=== PATIENT | male | born 1940 | race African-American/Black ===

== ENCOUNTER → 2018-03-18 | Day surgery (SDC) | payer MEDICARE, OTHER ==
[~2018-03-18] VITALS: Ht 180.3 cm; Wt 84.0 kg
[~2018-03-18] MED LIST: ACETAMINOPHEN/HYDROcodone 325 MG/5 MG TAB ONE; AMLO5TAB2 PO; ATOR80TA45 PO; BUPIVACAINE/EPINEPHRINE 0.5% PF 10 ML VIAL ONE; CHLORHEXIDINE GLUCONATE 2 % 1 PACK (2 CLOTHS) TOPICAL PRN; CHLORHEXIDINE GLUCONATE 4% SOLN 120 ML BTL TOPICAL SCH; DOXY1CAP74 PO; ETOD200 PO; KEPP10002 PO; LACTATED RINGER'S 1000 ML IV PRN; METO50TA PO; METOPROLOL TARTRATE 25 MG TAB PO PRN; MORPHINE SULFATE 2 MG/ML SYRINGE ONE; MORPHINE SULFATE 4 MG/ML INJ ONE; POVIDONE IODINE 5% (ANTISEPSIS KIT) 4 APPLICATIONS EACH NARE PRN; SODIUM CHLORID 0.9% 500 ML IV PRN; TRAM50TA PO; TRIAMCINOLONE ACETONIDE 40 MG/ML VIAL ONE; VANCOMYCIN 1000 MG/NS 250 ML (for <70 kg) IV SCH; ceFAZolin 2 GM PREMIX 50 ML IV SCH
--- NOTE | 2018-03-18 10:42 | MP ---
cc: Fitz Dominguez MD DATE OF OPERATION: 03/18/2018 DATE OF OPERATION: 03/18/2018 SURGEON: Fitz Dominguez MD PREOPERATIVE DIAGNOSES: 1. Tear of medial meniscus. 2. Osteoarthritis/chondromalacia of the right knee joint. POSTOPERATIVE DIAGNOSES: 1. Tear of medial meniscus. 2. Osteoarthritis/chondromalacia of the right knee joint. PROCEDURE: 1. Arthroscopic debridement with chondroplasty patellofemoral joint and medial joint compartment. 2. Subtotal medial meniscectomy. DETAILS OF PROCEDURE: The patient was placed on the operating table in the supine position and adequate general anesthesia was administered by the anesthesiologist, Dr. Hewitt. The right knee was prepped and draped in usual sterile fashion. A timeout was called, and the patient's name, location, procedure, etc., were fully confirmed. An anterolateral stab wound was made and a double cannula inserted into the lateral compartment and then into the patellofemoral joint region. A second spinal needle was placed into the medial compartment for localization and a resector placed through the medial stab wound. The joint was distended with lactated Ringer's solution. The examination of the joint did reveal chondromalacia of the patellofemoral joint with synovial thickening and hypertrophy. The joint also had evacuation of dark colored yellow fluid. The anterior and posterior cruciate ligaments were intact. The medial compartment showed osteochondral lesions extensive in nature down to subchondral bone directly over complex tearing of the medial meniscus, which extended from the posterior horn to the middle one-third. The resector was placed torn region and the medial meniscus was resected of all torn tissue, which was supplemented also by hand instruments. The lateral compartment was entered and found to be intact. The patella was also shaved in the extended position with the resector. Satisfactory remaining meniscus appeared to be stable. After thorough irrigation, all instruments were removed. The two stab wounds were closed with simple 3-0 nylon. An intraarticular injection of 40 mg of Kenalog along with 10 mL of Marcaine 0.5% were instilled within the knee joint. The patient was then placed in a bulky compression dressing. The tourniquet was deflated after 20 minutes. Sponge count, needle counts and instrument counts were reported correct x2. The estimated blood loss was nil. The patient was transferred to the recovery room in satisfactory and stable condition. MD LISET Jackson , 10:24 AM , 10:42 AM
[2018-03-18 12:45] VITALS: BP 147/82; PULSE 82; RESP 16; TEMP 97.4; O2SAT 99
== END | disposition home or self-care (01) ==
LOC: PHSDC 07:21
PROVIDERS: ATTEND Orthopaedic Surgery
DX: S83.231A Complex tear of medial meniscus, current injury, right knee, initial encounter (principal); M94.261 Chondromalacia, right knee; M17.11 Unilateral primary osteoarthritis, right knee
CPT/HCPCS: 01400; 29881; J2270; J3010; J3301; J3370; J7050; J7120